=== PATIENT | male | born 1950 | race Caucasian/White ===

== ENCOUNTER 2016-08-28 08:31 | Emergency (ER) | payer OTHER, MEDICARE ==
--- NOTE | 2016-08-28 09:29 | EDPHY ---
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 Has been tender for the past 3 days. He denies trauma to the area. Denies straddle injury. Denies dysuria hematuria increased frequency. Denies testicular or scrotal pain. PRIMARY CARE PROVIDER: Dr. Leonardo Tovar REVIEW OF SYSTEMS: A ten point review of systems was performed and is negative with the exception of the items mentioned in the HPI PHYSICAL EXAM (Prior to examination, patient consented to physical exam, hands were washed and my usual and customary physical exam procedures followed) 1) GENERAL: Well-developed, well-nourished, alert and oriented. Appears to be in no acute distress. 2) HEAD: Normocephalic 3) HEENT: sclera anicteric 4) LUNGS: Breathing comfortably. [5) : Circumcised, no urethral discharge, scrotum nontender no evidence of Miguel's gangrene or cellulitis. Testicles nontender. Dorsum of the penis proximal to the glans he has an erythematous tender lesion with sebum like drainage. Smoking Status: Never smoked Constitutional: Initial Vital Signs Temperature (C) 37 C 08/28/16 08:32 Heart Rate 67 08/28/16 08:32 Respiratory Rate 16 08/28/16 08:32 Blood Pressure 131/85 H 08/28/16 08:32 O2 Sat (%) 97 08/28/16 08:32 O2 Delivery Mode Room Air Allergies/Adverse Reactions: No Known Allergies Allergy (Verified 08/28/16 08:32) Home Medications: Medication Instructions Recorded Aspirin [Aspirin 325 mg (*)] 325 mg PO DAILY 08/28/16 Cephalexin [Keflex] 500 mg PO QID 10 Days 08/28/16 ED Images - Male Images Genitals Male: 1 - tender, draining lesion MDM/Departure - MDM ED Course/Re-evaluation: Patient has no new sexual partners. Doubt Syphilis, doubt herpes genitalis. Discussed possibility of infected sebaceous gland. Wound has been cultured. He is started on oral Keflex. He notes that he has had ongoing issue at this site on his penis for several decades. He has never seen urologist. I provided him had him and recommended follow up with Urology as well as primary care provider. Usual and customary genitourinary precautions and instructions provided. - Depart Disposition: Home, Routine, Self-Care Clinical Impression: Infected sebaceous gland Condition: Good Instructions: Cellulitis (ED) Additional Instructions: Return to the ER if you develop painful urination, tenderness or pain to your scrotum or testicles or any other symptoms that concern you. Prescriptions: Cephalexin [Keflex] 500 mg PO QID 10 Days Referrals: Leonardo Tovar DO [Primary Care Provider] - 2-3 days, call for appt. Royer Figueroa MD [Medical Doctor] - 2-3 days, call for appt. (Dr. Figueroa is a urologist)
[2016-08-28 09:48] VITALS: BP 132/79; PULSE 81; RESP 17; TEMP 98.4; O2SAT 96
== END 2016-08-28 09:48 | disposition home or self-care (01) ==
DX: L08.9 Local infection of the skin and subcutaneous tissue, unspecified (principal); Z79.82 Long term (current) use of aspirin